=== PATIENT | male | born 1935 | race Caucasian/White ===

== ENCOUNTER → 2016-06-27 | Outpatient (CLI) | payer MEDICARE, BC ==
[2016-06-27 16:14] LABS: INTERNATIONAL NORMALIZED RATIO 1.5 RATIO; PROTHROMBIN TIME - PATIENT 16.7 SEC (9.8-11.6)
== END ==
LOC: PLAB 14:37
DX: I48.91 Unspecified atrial fibrillation (principal)
CPT/HCPCS: 36415; 85610

== ENCOUNTER → 2017-05-17 | Outpatient (CLI) | payer MEDICARE, BC ==
[2017-05-17 15:35] LABS: INTERNATIONAL NORMALIZED RATIO 2.5 RATIO; PROTHROMBIN TIME - PATIENT 25.6 SEC (9.8-11.6)
== END ==
LOC: PLAB 14:04
DX: I48.91 Unspecified atrial fibrillation (principal)
CPT/HCPCS: 36415; 85610